=== PATIENT | male | born 2000 | race Caucasian/White ===

== ENCOUNTER 2025-03-27 06:53 | Emergency (ER) | payer OTHER ==
--- OUTSIDE RECORDS SUMMARY | 2025-03-27 06:55 | XMS REPORT | Continuity of Care Document ---
Author Name Unknown Address [address] [place] [address] [facility] [place] [facility] 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 Name Role Phone Rick Tapia Attending Clinician Unavailable Problems Condition Name Condition Details Condition Category Status Onset Date Resolution Date Last Treatment Date Treating Clinician Comments Source [id number] Other tobacco product nicotine dependence , uncomplica mony Problem [facility] Social History Social Habit Start Date Stop Date Quantity Comments Source History of Tobacco Use [facility] Sex Assigned At [facility] Smoking Status Start Date Stop Date Source Never Smoker [facility] Vital Signs Vital Name Observation Time Observation Value Comments S ource height 2023-05-17 15:20:00 72 [in_i] Commo n [facility] weight 2023-05-17 15:20:00 193.0 [lb_av] Co mmon [facility] temperature 2023-05-17 15:20:00 98.1 [degF] Com mon [facility] bmi 2023-05-17 15:20:00 26.17 kg/m2 Comm on [facility] oximetry 2023-05-17 15:20:00 97 % Commo n [facility] respiratory rate 2023-05-17 15:20:00 17 /min [facility] blood pressure systolic 2023-05-17 15:20:00 101 mm[Hg] Common [facility] blood pressure diastolic 2023-05-17 15:20:00 63 mm[Hg] [facility] Encounters Start Date/Time End Date/Time Encounter Type Admission Type Attending Clinicians Care Facility Care Department Encounter ID Source 2023-06-23 11:12:01 Outpatient Rick Tapia [facility] [id number] [facility] 2023-05-17 15:02:02 Outpatient Rick Tapia [facility] [id number] [facility] 2023-05-17 00:00:00 2023-05-17 00:00:00 PREV VISIT NEW AGE 18-39 [facility] [id number] [facility]
[2025-03-27 07:33] LABS: Absolute Basophils 0.1 K/uL (0-0.5); Absolute Eosinophils 0.3 K/uL (0-0.5); Absolute Monocytes 0.5 K/uL (0.1-1.3); Absolute Neutrophil 4.4 K/uL (1.8-8.0); Basophils % 0.7 % (0-1.3); Eosinophils % 3.9 % (0-4.4); Hematocrit 42.4 % (39.6-49.0); Hemoglobin 15.1 g/dL (13.6-17.9); Lymphocytes % 27.1 % (15.3-44.8); MCH 30.3 pg (27.0-35.0); MCHC 35.7 g/dL (32.0-36.0); MCV 84.9 fL (80-100); MPV 8.7 fL (7.6-11.3); Monocytes % 7.4 % (3.3-12.3); Neutrophils % 60.9 % (41.7-73.7); Platelets 284 thou/uL (152-406); RBC Red Blood Cell Count 4.99 M/uL (4.33-5.43); Red Cell Distribution Width 12.6 % (12.1-15.2)
[2025-03-27 07:42] LABS: Anion Gap 7.9 mEq/L (5.0-15.0); Potassium 3.9 mEq/L (3.5-5.1); Troponin High Sensitivity 3.3 pg/mL (<58.9)
--- NOTE | 2025-03-27 07:51 | RAD REPORT ---
EXAMINATION: ONE VIEW CHEST XR CLINICAL INDICATION: PALPITATIONS TECHNIQUE: Frontal chest projection is submitted. Examination is limited by patient positioning and t echnique. COMPARISON: No prior exam. FINDINGS: The lungs are well inflated and clear. The heart is normal in size. No displaced fractures identified . IMPRESSION: No acute intrathoracic abnormalities.
[2025-03-27 08:09] LABS: Specific Gravity 1.016 (1.005-1.030); Urine Bilirubin NEGATIVE (Negative); Urine Blood Negative (Negative); Urine Clarity Clear (Clear); Urine Color Light-Yellow (Yellow); Urine Glucose NEGATIVE (Negative); Urine Ketones NEGATIVE (Negative); Urine Microscopic Reflex YN NO UMIC; Urine Nitrite NEGATIVE (Negative); Urine Protein NEGATIVE (Negative); Urine Urobilinogen Normal (Normal); Urine pH 6.5 (5.0-7.0)
[2025-03-27 09:50] LABS: Barbiturates NEGATIVE (NEGATIVE); Benzodiazepines NEGATIVE (NEGATIVE); Cocaine NEGATIVE (NEGATIVE); METHAMPHETAM NEGATIVE (NEGATIVE); Methadone NEGATIVE (NEGATIVE); Opiates NEGATIVE (NEGATIVE); Phencyclidine NEGATIVE (NEGATIVE); THC Cannibis NEGATIVE (NEGATIVE)
--- NOTE | 2025-03-27 10:06 | ER ---
Nurse's Notes [facility] Name: Kristopher Colmenares Age: 24 yrs Sex: Male : 2000 Arrival Date: 03/27/2025 Time: 06:53 Bed 20 Private MD: Diagnosis: Palpitations Presentation: 03/27 07:18 Chief complaint: Patient states: "I started having palpations at work 1 week ago then mb9 they went away. Last night I started having them again, feeling SOB, weak, and some nausea.". Coronavirus screen: At this time, the client does not indicate any symptoms associated with coronavirus-19. Ebola Screen: No symptoms or risks identified at this time. Initial Sepsis Screen: Does the patient meet any 2 criteria? No. Patient's initial sepsis screen is negative. Does the patient have a suspected source of infection? No. Patient's initial sepsis screen is negative. Risk Assessment: Do you want to hurt yourself or someone else? Patient reports no desire to harm self or others. Onset of symptoms was March 27, 2025. 07:18 Method Of Arrival: Ambulatory mb9 07:18 Acuity: MILA 3 mb9 Triage Assessment: 07:19 General: Appears in no apparent distress. Behavior is calm, cooperative. Pain: Denies mb9 pain. EENT: No signs and/or symptoms were reported regarding the EENT system. Neuro: Ceja Agitation-Sedation Scale (RASS): 0 - Alert and Calm Level of Consciousness is awake, alert, obeys commands, Oriented to person, place, time, situation, Appropriate for age. Cardiovascular: Heart tones S1 S2 present Patient's skin is warm and dry. Rhythm is regular. Cardiovascular: Pulses are all present. Respiratory: Reports shortness of breath Airway is patent Respiratory effort is even, unlabored, Respiratory pattern is regular, symmetrical, Breath sounds are clear bilaterally. GI: Abdomen is flat, non-distended, Bowel sounds present X 4 quads. Abd is soft and non tender X 4 quads. Reports nausea. : No signs and/or symptoms were reported regarding the genitourinary system. Derm: Skin is pink, warm \\T\\ dry. Musculoskeletal: Range of motion: intact in all extremities. Historical: - Allergies: 07:19 No Known Allergies; mb9 - Home Meds: 07:19 None [Active]; mb9 - PMHx: 07:19 None; mb9 - PSHx: 07:19 None; mb9 - Immunization history:: Adult Immunizations up to date. - Infectious Disease History:: Denies. - Social history:: Smoking status: Patient reports use of chewing tobacco. - Family history:: not pertinent. Screenin:20 [facility] ED Fall Risk Assessment (Adult) History of falling in the last 3 months, mb9 including since admission No falls in past 3 months (0 pts) Confusion or Disorientation No (0 pts) Intoxicated or Sedated No (0 pts) Impaired Gait No (0 pts) Mobility Assist Device Used No (0 pt) Altered Elimination No (0 pt) Score/Fall Risk Level 0 - 2 = Low Risk Oriented to surroundings, Maintained a safe environment, Educated pt \\T\\ family on fall prevention, incl call for assistance when getting out of bed. Abuse screen: Denies threats or abuse. Nutritional screening: No deficits noted. Tuberculosis screening: No symptoms or risk factors identified. Assessment: 07:20 Reassessment: see triage assessment. mb9 08:10 Reassessment: No changes from previously documented assessment. Patient and/or family mb9 updated on plan of care and expected duration. Pain level reassessed. Patient is alert, oriented x 3, equal unlabored respirations, skin warm/dry/pink. 09:14 Reassessment: No changes from previously documented assessment. Patient and/or family mb9 updated on plan of care and expected duration. Pain level reassessed. Patient is alert, oriented x 3, equal unlabored respirations, skin warm/dry/pink. 09:50 Reassessment: spoke to ECHO, states they will be down here soon. mb9 10:10 Reassessment: D/C pending ECHO. mb9 10:33 Reassessment: ECHO at bedside. mb9 10:50 Reassessment: No changes from previously documented assessment. Patient and/or family mb9 updated on plan of care and expected duration. Pain level reassessed. Patient is alert, oriented x 3, equal unlabored respirations, skin warm/dry/pink. 11:32 Reassessment: Patient appears in no apparent distress at this time. No changes from mb9 previously documented assessment. Vital Signs: 07:18 BP 135 / 78; Pulse 61; Resp 16; Temp 98; Pulse Ox 100% ; Weight 81.65 kg; Height 5 ft. mb9 11 in. ; Pain 0/10; 08:05 BP 144 / 98 LA; Pulse 61; Resp 16; Pulse Ox 100% on R/A; mb9 08:06 BP 120 / 68 RA; Pulse 66; Resp 16; Pulse Ox 100% on R/A; mb9 10:00 BP 108 / 87; Pulse 74; Resp 16; Pulse Ox 100% on R/A; mb9 11:32 BP 119 / 98; Pulse 74; Resp 18; Pulse Ox 100% ; mb9 07:18 Body Mass Index 25.10 (81.65 kg, 180.34 cm) mb9 07:18 Pain Scale: Adult mb9 ED Course: 07:00 Patient arrived in ED. 2 07:05 EKG done, by ED staff, reviewed by Jocelin Montague RN. mb9 07:11 Jocelin Montague, RN is Primary Nurse. mb9 07:16 Darinel Zuñiga MD is Attending Physician. [facility] 07:17 Initial lab(s) drawn, by al, sent to lab. Inserted saline lock: 20 gauge in right mb9 antecubital area, using aseptic technique. Blood collected. Flushed with 10 mL NS. 07:19 Triage completed. mb9 07:19 Arm band placed on. mb9 07:20 Placed in gown. Bed in low position. Call light in reach. Side rails up X 1. Provided mb9 Education on: press call light if needing anything. Client placed on continuous cardiac and pulse oximetry monitoring. NIBP monitoring applied. telemetry monitor on. Door closed. Noise minimized. Warm blanket given. Pillow given. 07:21 No provider procedures requiring assistance completed. mb9 07:43 XRAY Chest (1 view) In Process Unspecified. EDMS 08:01 UDS Sent. mb9 08:01 UA Rfx Santiago Cult if indicated Sent. mb9 08:03 Urine collected: clean catch specimen, clear. mb9 10:06 Harmeet Mora MD is Referral Physician. huyen 11:33 IV discontinued, intact, bleeding controlled, No redness/swelling at site. Pressure mb9 dressing applied. Administered Medications: No medications were administered Medication: 07:21 VIS not applicable for this client. mb9 Outcome: 10:06 Discharge ordered by . huyen 11:33 Discharged to home ambulatory, brian 11:33 Condition: stable 11:33 Discharge instructions given to patient, Instructed on discharge instructions, follow up and referral plans. Demonstrated understanding of instructions, follow-up care, medications, Prescriptions given X 1, 11:33 Patient left the ED. [email or web address] Signatures: Dispatcher [employer] EDMS Darinel Zuñiga MD MD cha Wilkerson, Jocelin Puentes RN RN mb9 Maryjane Dc 2 Corrections: (The following items were deleted from the chart) 08:09 08:01 BP 144 / 98; Pulse 61bpm; Resp 16bpm; Pulse Ox 100% RA; mb9 mb9
--- NOTE | 2025-03-27 10:06 | EDPHYS ---
Physician Documentation [facility] Name: Kristopher Colmenares Age: 24 yrs Sex: Male : 2000 Arrival Date: 03/27/2025 Time: 06:53 Bed 20 Private MD: ED Physician Darinel Zuñiga HPI: 03/27 08:23 This 24 yrs old Male presents to ER via Ambulatory with complaints of huyen Palpitations, Weakness. 08:23 The patient presents with a history of irregular heart beat, heart racing. Context: The huyen symptoms occur at rest. Onset: The symptoms/episode began/occurred 1 week(s) ago. Duration: The patient or guardian reports multiple episodes, that are intermittent, with no pattern. Modifying factors: The symptoms are aggravated by nothing. The symptoms are alleviated by nothing. Severity of symptoms: At their worst the symptoms were moderate in the emergency department the symptoms have improved moderately. The patient has experienced similar episodes in the past, multiple times. Historical: - Allergies: 07:19 No Known Allergies; mb9 - Home Meds: 07:19 None [Active]; mb9 - PMHx: 07:19 None; mb9 - PSHx: 07:19 None; mb9 - Immunization history:: Adult Immunizations up to date. - Infectious Disease History:: Denies. - Social history:: Smoking status: Patient reports use of chewing tobacco. - Family history:: not pertinent. ROS: 08:23 Constitutional: Negative for fever, chills, and weight loss, Eyes: Negative for injury, huyen pain, redness, and discharge, ENT: Negative for injury, pain, and discharge, Neck: Negative for injury, pain, and swelling, Respiratory: Negative for shortness of breath, cough, wheezing, and pleuritic chest pain, Abdomen/GI: Negative for abdominal pain, nausea, vomiting, diarrhea, and constipation, Back: Negative for injury and pain, : Negative for injury, bleeding, discharge, and swelling, MS/Extremity: Negative for injury and deformity, Skin: Negative for injury, rash, and discoloration, Neuro: Negative for headache, weakness, numbness, tingling, and seizure, Psych: Negative for depression, anxiety, suicide ideation, homicidal ideation, and hallucinations, Allergy/Immunology: Negative for hives, rash, and allergies, Endocrine: Negative for neck swelling, polydipsia, polyuria, polyphagia, and marked weight changes, Hematologic/Lymphatic: Negative for swollen nodes, abnormal bleeding, and unusual bruising, 08:23 Cardiovascular: Positive for palpitations, Exam: 08:23 Constitutional: This is a well developed, well nourished patient who is awake, alert, huyen and in no acute distress. Head/Face: Normocephalic, atraumatic. Eyes: Pupils equal round and reactive to light, extra-ocular motions intact. Lids and lashes normal. Conjunctiva and sclera are non-icteric and not injected. Cornea within normal limits. Periorbital areas with no swelling, redness, or edema. ENT: Nares patent. No nasal discharge, no septal abnormalities noted. Tympanic membranes are normal and external auditory canals are clear. Oropharynx with no redness, swelling, or masses, exudates, or evidence of obstruction, uvula midline. Mucous membranes moist. Neck: Trachea midline, no thyromegaly or masses palpated, and no cervical lymphadenopathy. Supple, full range of motion without nuchal rigidity, or vertebral point tenderness. No Meningismus. Chest/axilla: Normal chest wall appearance and motion. Nontender with no deformity. No lesions are appreciated. Cardiovascular: Regular rate and rhythm with a normal S1 and S2. No gallops, murmurs, or rubs. Normal PMI, no JVD. No pulse deficits. Respiratory: Lungs have equal breath sounds bilaterally, clear to auscultation and percussion. No rales, rhonchi or wheezes noted. No increased work of breathing, no retractions or nasal flaring. Abdomen/GI: Soft, non-tender, with normal bowel sounds. No distension or tympany. No guarding or rebound. No evidence of tenderness throughout. Back: No spinal tenderness. No costovertebral tenderness. Full range of motion. Male : Normal genitalia with no discharge or lesions. Skin: Warm, dry with normal turgor. Normal color with no rashes, no lesions, and no evidence of cellulitis. MS/ Extremity: Pulses equal, no cyanosis. Neurovascular intact. Full, normal range of motion., bilateral aka Neuro: Awake and alert, GCS 15, oriented to person, place, time, and situation. Cranial nerves II-XII grossly intact. Motor strength 5/5 in all extremities. Sensory grossly intact. Cerebellar exam normal. Normal gait. Psych: Awake, alert, with orientation to person, place and time. Behavior, mood, and affect are within normal limits. 08:23 ECG was reviewed by the Attending Physician. Vital Signs: 07:18 BP 135 / 78; Pulse 61; Resp 16; Temp 98; Pulse Ox 100% ; Weight 81.65 kg; Height 5 ft. mb9 11 in. ; Pain 0/10; 08:05 BP 144 / 98 LA; Pulse 61; Resp 16; Pulse Ox 100% on R/A; mb9 08:06 BP 120 / 68 RA; Pulse 66; Resp 16; Pulse Ox 100% on R/A; mb9 10:00 BP 108 / 87; Pulse 74; Resp 16; Pulse Ox 100% on R/A; mb9 11:32 BP 119 / 98; Pulse 74; Resp 18; Pulse Ox 100% ; mb9 07:18 Body Mass Index 25.10 (81.65 kg, 180.34 cm) 9 07:18 Pain Scale: Adult mb9 MDM: 07:16 Medical Screening Exam initiated huyen 08:28 PHILLIP Risk Score: Total Score = 0. Differential diagnosis: arrythmia, dehydration, huyen stress disorder. Data reviewed: vital signs, nurses notes, lab test result(s), EKG, radiologic studies, plain films, echo. Consideration of Admission/Observation Escalation of care including admission/observation considered. I considered the following discharge prescriptions or medication management in the emergency department Medications were administered in the Emergency Department. See MAR. Independent interpretation of the following test(s) in the Emergency Department EKG: See my EKG interpretation above. Test considered but Not performed: CT: no ct dissection. Care significantly affected by the following chronic conditions: none. 03/27 07:11 Order name: Basic Metabolic Panel; Complete Time: 07:56 [facility] 03/27 07:11 Order name: CBC with Diff; Complete Time: :56 [facility] 03/27 07:11 Order name: Troponin HS; Complete Time: 07:56 [facility] 03/27 07:24 Order name: TSH; Complete Time: 09:11 [facility] 03/27 07:24 Order name: UDS; Complete Time: 10:06 [facility] 03/27 07:24 Order name: UA Rfx Santiago Cult if indicated; Complete Time: 09:11 [facility] 03/27 07:11 Order name: XRAY Chest (1 view); Complete Time: 07:56 mb9 03/27 08:03 Order name: Echo w/ Doppler [facility] 03/27 07:11 Order name: EKG; Complete Time: 07:12 9 03/27 07:11 Order name: Cardiac monitoring; Complete Time: 07:17 9 03/27 07:11 Order name: EKG - Nurse/Tech; Complete Time: 07:17 9 03/27 07:11 Order name: IV Saline Lock; Complete Time: 07:17 mb9 03/27 07:11 Order name: Labs collected and sent; Complete Time: 07:17 9 03/27 07:11 Order name: O2 Per Protocol; Complete Time: 07:17 9 03/27 07:11 Order name: O2 Sat Monitoring; Complete Time: 07:17 9 03/27 08:03 Order name: Bilateral blood pressure; Complete Time: 08:08 [facility] EC:23 Rate is 59 beats/min. Rhythm is regular. QRS [place] is Normal. MT interval is normal. QRS huyen interval is normal. QT interval is normal. No Q waves. T waves are Normal. No ST changes noted. Clinical impression: Sinus bradycardia and No evidence of ischemia. Interpreted by me. Reviewed by me. Administered Medications: No medications were administered Disposition Summary: 03/27/25 10:06 Discharge Ordered Notes: Location: Home huyen Problem: new huyen Symptoms: have improved huyen Condition: Stable huyen Diagnosis - Palpitations huyen Followup: huyen - With: Private Physician - When: 2 - 3 days - Reason: Recheck today's complaints, Continuance of care, Re-evaluation by your physician Followup: huyen - With: Harmeet Mora MD - When: 2 - 3 days - Reason: Recheck today's complaints, Re-evaluation by your physician Discharge Instructions: - Discharge Summary Sheet huyen - Bradycardia, Adult huyen - Palpitations huyen - Aspirin and Your Heart huyen - Palpitations, [id number] huyen Forms: - Medication Reconciliation Form huyen - Antibiotic Education huyen - Prescription Opioid Use huyen - Patient Portal Instructions huyen - Leadership Thank You Letter huyen Prescriptions: - Pepcid 20 mg Oral tablet - take 1 tablet ORAL route every 12 hours for 21 days; 42 tablet; Refills: 0, huyen Product Selection Permitted Signatures: Dispatcher [employer] EDDarinel Morillo MD MD huyen Montague, Harleen, RN RN mb9
--- NOTE | 2025-03-27 13:31 | ECHO ---
HEIGHT: ft in WEIGHT: lb oz DATE OF STUDY: 03/27/[address]: Darinel Zuñiga MD 2-DIMENSIONAL: YES M.MODE: YES DOPPLER: YES COLOR FLOW: YES TDS: NO PORTABLE: YES DEFINITY: NO BUBBLE STUDY: NO DIAGNOSIS: PALPITATIONS CARDIAC HISTORY: CATHERIZATION: NO SURGERY: NO PROSTHETIC VALVE: NO PACEMAKER: NO MEASUREMENTS (cm) DIASTOLIC (NORMALS) SYSTOLIC (NORMALS) IVSd 0.9 (0.6-1.2) LA Diam 3.0 (1.9-4.0) LVEF 60-65% LVIDd 5.3 (3.5-5.7) LVIDs 3.0 (2.0-3.5) %FS 44% LVPWd 0.9 (0.6-1.2) Ao Diam 2.6 (2.0-3.7) 2 DIMENSIONAL ASSESSMENT: RIGHT ATRIUM: NORMAL LEFT ATRIUM: NORMAL RIGHT VENTRICLE: NORMAL LEFT VENTRICLE: NORMAL TRICUSPID VALVE: NORMAL MITRAL VALVE: NORMAL PULMONIC VALVE: NORMAL AORTIC VALVE: NORMAL PERICARDIAL EFFUSION: NONE AORTIC ROOT: NORMAL LEFT VENTRICULAR WALL MOTION: NORMAL. DOPPLER/COLOR FLOW: NORMAL. COMMENTS: 1. NORMAL LEFT VENTRICULAR SYSTOLIC FUNCTION. LEFT VENTRICULAR EJECTION FRACTION 60-65%. NORMAL WALL MOTION. 2. NORMAL DIASTOLIC FINCTION. TECHNOLOGIST: SEBLE FERNANDEZ
[2025-03-27 14:29] VITALS: TEMP 98; O2SAT 100
[2025-03-27 14:37] VITALS: BP 119/98
--- NOTE | 2025-03-29 11:51 | EKG ---
Test Date: 2025-03-27 Test Time: 07:07:06 Agricultural Education Professor: MB MEASUREMENT RESULTS: Intervals: Rate: 59 UT: 158 QRSD: 98 QT: 398 QTc: 394 [place]: P: 72 UT: 158 QRS: 91 T: 74 INTERPRETIVE STATEMENTS: Sinus bradycardia Rightward axis Early repolarization Borderline ECG No previous ECG available for comparison Electronically Signed On 03-29-25 11:44:31 CDT by Zoltan Caraballo
== END 2025-03-27 11:33 | disposition home or self-care (01) ==
LOC: ER 06:53
DX: R00.2 Palpitations (principal); R53.1 Weakness; F17.220 Nicotine dependence, chewing tobacco, uncomplicated
CPT/HCPCS: 36415; 71045; 80048; 80307; 81003; 84443; 84484; 85025; 93005; 93306; 99284